=== PATIENT | female | born 1990 | race Hispanic/Latino ===

== ENCOUNTER 2025-06-29 10:50 | Emergency (ER) | payer BC, SELFPAY ==
[2025-06-29 10:51] VITALS: BP 126/73; PULSE 81; RESP 16; TEMP 36.6; O2SAT 98; BMI 23.0
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
--- NOTE | 2025-06-29 11:12 | RAD_ITS ---
PROCEDURE: KNEE 4 OR MORE VIEWS 06/29/2025 REASON FOR EXAM: INJURY TECHNIQUE: Procedure Code: RADKN Modality: DX Procedure: KNEE 4 OR MORE VIEWS Laterality: Left COMPARISON: None FINDINGS: Bones: No fracture. No suspicious bone lesion. Joints: Normal alignment. Effusion: No effusion. Soft tissues: Soft tissues are unremarkable. Other: RAD/Knee 4 or More Views IMPRESSION: Unremarkable left knee Reading Location: [id number]
[2025-06-29 11:43] VITALS: BP 135/74; PULSE 85; RESP 17; O2SAT 100
[2025-06-29 11:44] VITALS: BP 135/74; PULSE 85; RESP 17; TEMP 36.6; O2SAT 100
== END 2025-06-29 11:44 | disposition home or self-care (01) ==
LOC: ED 11:41
PROVIDERS: Emergency Provider Emergency Medicine; Visit Provider Emergency Medicine
DX: S80.02XA Contusion of left knee, initial encounter (principal); V43.92XA Unspecified car occupant injured in collision with other type car in traffic accident, initial encounter; W22.10XA Striking against or struck by unspecified automobile airbag, initial encounter; Y92.410 Unspecified street and highway as the place of occurrence of the external cause
CPT/HCPCS: 73564; 99282